=== PATIENT | female | born 1995 | race Caucasian/White ===

== ENCOUNTER 2020-06-07 16:37 | Emergency (ER) | payer OTHER, SELFPAY ==
--- NOTE | 2020-06-07 17:01 | ED.GENADULT ---
HPI - General Adult General Chief complaint: Back Pain/Injury <CARI Abrhaam - Last Filed: 06/07/20 17:05> Stated complaint: back pain, no injury <CARI Abraham - Last Filed: 06/07/20 17:05> Time Seen by Provider: 06/07/20 17:01 <CARI Abraham - Last Filed: 06/07/20 17:05> Source: patient <Ruba Gardiner MD - Last Filed: 06/07/20 18:46> Mode of arrival: ambulatory <Ruba Gardiner MD - Last Filed: 06/07/20 18:46> Limitations: no limitations <Ruba Gardiner MD - Last Filed: 06/07/20 18:46> History of Present Illness HPI narrative: Patient comes emergency room complaining of left lower back pain. Patient states it was sudden onset today. Patient denies any injury. No dysuria, no midback pain, nonradiating <Ruba Gardiner MD - Last Filed: 06/07/20 18:46> MD complaint: Back pain <Ruba Gardiner MD - Last Filed: 06/07/20 18:46> Onset (ago): hour(s) <Ruba Gardiner MD - Last Filed: 06/07/20 18:46> Related Data Home medications: Previous Rx's Medication Instructions Recorded cyclobenzaprine 10 mg PO TID PRN #10 tab 06/07/20 <CARI Abraham - Last Filed: 06/07/20 17:05> Allergies/adverse reactions: Allergies Allergy/AdvReac Type Severity Reaction Status Date / Time azithromycin [From Zithromax] Allergy Hives Verified 06/07/20 17:03 <CARI Abraham - Last Filed: 06/07/20 17:05> Review of Systems Review of Systems: Constitutional : No Weight loss, No Fever, No Chills, No Night Sweats, No Fatigue, No Malaise ENT/Mouth : No Hearing loss, No Ear Pain, No Nasal Congestion, No Sinus Pain, No Hoarseness, No sore throat, No Rhinorrhea, No Swallowing Difficulty Eyes: No Eye Pain, No Swelling, No Redness, No Foreign Body, No Discharge, No Vision Changes Cardiovascular : No Chest Pain, No SOB, No Dyspnea on Exertion, No Orthopnea, No Edema, No Palpitations Respiratory : No Cough, No Sputum, No Wheezing, No Smoke Exposure, No Dyspnea Gastrointestinal : No Nausea, No Vomiting, No Diarrhea, No Constipation, No abdominal Pain, No Hematochezia, No Melena Genitourinary : no irregular bleeding, No Dysuria, No Urinary Frequency, No Hematuria, No Urinary Incontinence, No Urgency, No Flank Pain, No Urinary Flow Changes, No Hesitancy Musculoskeletal : No joint pain, No Myalgias, No Joint Swelling, complaining of left-sided back pain Skin : No Skin Lesions, No rash Neuro : No Weakness, No Numbness, No Paresthesias, No Loss of Consciousness, No Dizziness, No Headache Psych : No Anxiety/Panic, No Depression, No SI/HI/AH/VH, No Social Issues, Heme/Lymph: No Bruising, No Bleeding,No Lymphadenopathy Endocrine : No Polyuria, No Polydipsia, No Temperature Intolerance <Ruba Gardiner MD - Last Filed: 06/07/20 18:46> [facility], [facility] Past Medical History Medical History: Medical History Healthy adult <CARI Abraham - Last Filed: 06/07/20 17:05> Physical Exam Vital Signs: Vital Signs: Last Vital Signs Temp 98.6 F 06/07/20 17:04 Pulse 86 06/07/20 18:28 Resp 17 06/07/20 18:28 BP 119/69 06/07/20 18:28 Pulse Ox 98 06/07/20 18:28 Body Mass Index 43.4 <CARI Abraham - Last Filed: 06/07/20 17:05> Vital Signs: Last Vital Signs Temp 98.6 F 06/07/20 17:04 Pulse 86 06/07/20 18:28 Resp 17 06/07/20 18:28 BP 119/69 06/07/20 18:28 Pulse Ox 98 06/07/20 18:28 Body Mass Index 43.4 <Ruba Gardiner MD - Last Filed: 06/07/20 18:46> Appearance: Alert. Oriented X3. No acute distress. Eyes: Pupils equal, round and reactive to light. ENT: Pharynx normal. Neck: Normal inspection. Neck supple. No lymph nodes noted. No crepitus CVS: Normal heart rate and rhythm. Pulses normal. Normal S1 and S2 Respiratory: No respiratory distress. Breath sounds normal. No Wheezing. No rales Abdomen: Soft and nontender. No rigidity. No distention. good BS x4 Back: Pain to palpation over the left paraspinal muscles, muscles feel tight, likely muscular spasms, no lumbar spine tenderness, no CVA tenderness bilaterally Skin: Skin warm and dry. Normal skin color. Normal skin turgor. Extremities: No lower extremity edema. No lower extremity edema. No Lacerations. No Rash Neuro: Oriented X 3. No motor deficit. No sensory deficit. Moving all extermities. No slurred speech. <Ruba Gardiner MD - Last Filed: 06/07/20 18:46> Course Course Course Narrative: Rapid medical assessment on arrival to ED - 24 y/o female who is 3 months , had epidural who presents via EMS with acute onset of non-traumatic lower back pain that started 2 hours ago. No relief with Motrin. Will get UA and XR. <CARI Abraham - Last Filed: 06/07/20 17:05> I discussed the x-ray with the patient, no acute finding, discussed patient's physical exam, likely having muscle spasms. Patient has no CVA tenderness, no blood in the urine, kidney stones are not suspected at this time. <Ruba Gardiner MD - Last Filed: 06/07/20 18:46> Medical Decision Making Lab Data Labs: Lab Results 06/07/20 Range/Units 17:43 Urine Color YELLOW Urine Appearance CLEAR Urine pH 6.5 (5.0-8.0) Ur Specific [place] 1.020 (1.005-1.025) Urine Protein NEG (NEG-TRACE) MG/DL Urine Glucose (UA) NEG (NEG) MG/DL Urine Ketones 5 (NEG) MG/DL Urine Blood NEG (NEG) Urine Nitrite NEG (NEG) Ur Leukocyte Esterase NEG (NEG) <CARI Abraham - Last Filed: 06/07/20 17:05> Lab Results 06/07/20 Range/Units 17:43 Urine Color YELLOW Urine Appearance CLEAR Urine pH 6.5 (5.0-8.0) Ur Specific [place] 1.020 (1.005-1.025) Urine Protein NEG (NEG-TRACE) MG/DL Urine Glucose (UA) NEG (NEG) MG/DL Urine Ketones 5 (NEG) MG/DL Urine Blood NEG (NEG) Urine Nitrite NEG (NEG) Ur Leukocyte Esterase NEG (NEG) <Ruba Gardiner MD - Last Filed: 06/07/20 18:46> Imaging Data Lumbar spine: Radiologist's impression: Appearance: Alert. Oriented X3. No acute distress. Eyes: Pupils equal, round and reactive to light. ENT: Pharynx normal. Neck: Normal inspection. Neck supple. No lymph nodes noted. No crepitus CVS: Normal heart rate and rhythm. Pulses normal. Normal S1 and S2 Respiratory: No respiratory distress. Breath sounds normal. No Wheezing. No rales Abdomen: Soft and nontender. No rigidity. No distention. good BS x4 Skin: Skin warm and dry. Normal skin color. Normal skin turgor. Extremities: No lower extremity edema. No lower extremity edema. No Lacerations. No Rash Neuro: Oriented X 3. No motor deficit. No sensory deficit. Moving all extermities. No slurred speech. <Ruba Gardiner MD - Last Filed: 06/07/20 18:46> Discharge Plan Discharge Clinical Impression: Back pain Qualifiers: Back pain location: low back pain Chronicity: acute Back pain laterality: left Sciatica presence: without sciatica Qualified Code(s): M54.5 - Low back pain <CARI Abraham - Last Filed: 06/07/20 17:05> Patient Disposition: Home, Self-Care <CARI Abraham - Last Filed: 06/07/20 17:05> Instructions: Muscle Spasm (ED) <CARI Abraham - Last Filed: 06/07/20 17:05> Additional Instructions: Please follow-up with your primary care physician tomorrow. If you have any worsening or new symptoms, please return to the emergency room or call 911 <CARI Abraham - Last Filed: 06/07/20 17:05> Prescriptions: New cyclobenzaprine 10 mg tablet 10 mg PO TID PRN (Reason: muscle spasm) Qty: 10 RF: 0 <CARI Abraham - Last Filed: 06/07/20 17:05>
[2020-06-07 17:04] VITALS: BP 92/63; PULSE 95; RESP 18; TEMP 37; O2SAT 100; BMI 43.4
--- NOTE | 2020-06-07 17:05 | XR_ITS ---
EXAMINATION: XR LUMBOSACRAL SPINE CLINICAL INFORMATION: Upper lumbar pain. History of recent epidural COMPARISON: None TECHNIQUE: Three views of the lumbosacral spine. FINDINGS: The vertebral bodies and posterior elements are normal. The disc spaces are preserved and the vertebral alignment is normal. The paraspinal soft tissues are normal. XR/XR lumbar spine 2-3V IMPRESSION: Unremarkable examination. No acute bony abnormality seen.
[2020-06-07 17:56] LABS: Glucose Urine UA NEG (NEG); Leukocyte Esterase Urine NEG (NEG); Nitrite Urine NEG (NEG); PH 6.5 (5.0-8.0); Urine Blood NEG (NEG); Urine Ketones 5 MG/DL (NEG); Urine Protein NEG (NEG-TRACE)
[2020-06-07 18:00] LABS: Appearance Urine CLEAR; Color Urine YELLOW
[2020-06-07 18:28] VITALS: BP 119/69; PULSE 86; RESP 17; O2SAT 98
[2020-06-07] MEDS: Ketorolac Tromethamine 60 MG/2 ML VIAL IM (18:55)
== END 2020-06-07 19:03 | disposition home or self-care (01) ==
LOC: HO.ED 18:50
PROVIDERS: Physician Assistant; Emergency Provider Emergency Medicine
DX: M54.5 Low back pain (principal)
CPT/HCPCS: 72100; 81003; 96372; 99284; J1885